=== PATIENT | male | born 1985 | race Caucasian/White ===

== ENCOUNTER 2024-01-28 11:28 | Emergency (ER) | payer MEDICAID ==
[~2024-01-28] VITALS: Ht 180.3 cm; Wt 78.0 kg
[2024-01-28 11:45] VITALS: O2SAT 100
[2024-01-28 12:16] LABS: CLARITY URINE CLEAR (CLEAR); COLOR URINE YELLOW (YELLOW); GLUCOSE URINE NEGATIVE (NEGATIVE); KETONES URINE TRACE (NEGATIVE); LEUKOCYTE ESTERASE URINE NEGATIVE (NEGATIVE); NITRITE URINE NEGATIVE (NEGATIVE); OCCULT BLOOD URINE NEGATIVE (NEGATIVE); PH URINE 6.5 (4.5-8.0); PROTEIN URINE 1+ (NEGATIVE); SPECIFIC GRAVITY URINE 1.026 (1.005-1.030)
[2024-01-28 12:22] LABS: BASOPHILS % 0.2 % (0.0-2.0); HEMATOCRIT. 30.3 % (42.0-52.0); HEMOGLOBIN. 10.2 g/dL (14.0-18.0); LYMPHOCYTES % 8.9 % (20.0-50.0); MEAN CORPUSCULAR HEMOGLOBIN 31.3 pg (28.0-32.0); MEAN CORPUSCULAR HGB CONC 33.7 g/dL (31.0-37.0); MEAN CORPUSCULAR VOLUME 92.8 fL (80.0-94.0); MEAN PLATELET VOLUME 7.4 fl (7.4-10.4); MONOCYTES % 1.8 % (2.0-8.0); NEUTROPHILS % 89.1 % (40.0-76.0); PLATELET 251 x1000/uL (130-400); RED BLOOD CELL COUNT 3.26 mill/uL (4.7-6.1); RED CELL DISTRIBUTION WIDTH 13.7 % (11.6-14.6)
[2024-01-28 12:29] LABS: CHLORIDE 106 mEq/L (98-107); POTASSIUM 4.5 mEq/L (3.5-5.1); SODIUM 137 mEq/L (136-145)
[2024-01-28 12:30] LABS: CALCIUM 9.2 mg/dL (8.7-10.4); CARBON DIOXIDE 26 mEq/L (21-32)
[2024-01-28 12:35] LABS: CREATININE 0.7 mg/dL (0.6-1.3); GLUCOSE 124 mg/dL (70-105); UREA NITROGEN BLOOD 13 mg/dL (9-23)
[2024-01-28 12:37] LABS: ALANINE AMINOTRANSFERASE 17 IU/L (10-49); ALBUMIN 4.2 g/dL (3.2-4.8); ASPARTATE AMINOTRANSFERASE 31 IU/L (<34); BILIRUBIN DIRECT 0.2 mg/dL (<=3.0); BILIRUBIN TOTAL 0.6 mg/dL (0.1-1.0)
[2024-01-28 12:51] LABS: MUCUS URINE 2+ /lpf (NONE/TRACE); SQUAMOUS EPITHELIAL CELL URINE 2+ /lpf (RARE/1+)
[2024-01-28 12:52] LABS: BACTERIA URINE NONE SEEN; RBC URINE NONE SEEN /hpf (0-2); WBC URINE 0-2 /hpf (0-2)
[2024-01-28] MEDS: FAMOTIDINE 20MG/2ML VIAL IV ONE (12:56)
[2024-01-28] MEDS: ONDANSETRON HCL 4MG/2ML INJ IV STA (12:56)
[2024-01-28] MEDS: SODIUM CHLORIDE 0.9% 1,000 ML IV ONE (13:02)
[2024-01-28] MEDS: HYDROCODONE/ACETAMINOPHEN 5/325MG TABLET PO STA (13:20)
[2024-01-28] MEDS: ONDANSETRON HCL 4MG/2ML INJ IV ONE (14:20)
[2024-01-28] MEDS: MORPHINE SULFATE 4 MG/ML INJ (FOR IV/IM USE) IV STA (15:14)
[2024-01-28] MEDS ORDERED: IOHEXOL-300 100 ML BOTTLE ONE (16:45)
[2024-01-28 16:54] VITALS: BP 118/60; PULSE 70; RESP 16; TEMP 36.78072; O2SAT 100
[2024-01-29 10:07] LABS: *AMPHETAMINES SCREEN URINE NEGATIVE (NEGATIVE)
[2024-01-29 10:08] LABS: *BARBITURATES SCREEN URINE NEGATIVE (NEGATIVE); *BENZODIAZEPINES SCREEN URINE NEGATIVE (NEGATIVE); *COCAINE SCREEN URINE NEGATIVE (NEGATIVE); CANNABINOID URINE SCREEN PRESUMPTIVE POSITIVE (NEGATIVE); ECSTASY MDMA SCREEN URINE NEGATIVE (NEGATIVE); METHADONE URINE SCREEN NEGATIVE (NEGATIVE); OPIATES URINE SCREEN PRESUMPTIVE POSITIVE (NEGATIVE); PHENCYCLIDINE URINE SCREEN NEGATIVE (NEGATIVE)
== END 2024-01-28 17:10 | disposition home or self-care (01) ==
LOC: ER 11:28
DX: K56.7 Ileus, unspecified (principal); S22.31XA Fracture of one rib, right side, initial encounter for closed fracture; X58.XXXA Exposure to other specified factors, initial encounter; Y93.89 Activity, other specified; Y92.89 Other specified places as the place of occurrence of the external cause; Y99.8 Other external cause status
CPT/HCPCS: 80076; 80305; 80048; 81003; 83690; 85025; 36415; 74177; 96374; 96375; 99285; Q9967; J3490; J2405; J2270; J7030; Z7610 ×2

== ENCOUNTER 2024-04-25 18:36 | Emergency (ER) | payer MEDICAID, OTHER ==
[~2024-04-25] VITALS: Ht 180.3 cm; Wt 82.0 kg
[2024-04-25 18:52] VITALS: BP 142/74; PULSE 102; RESP 16; TEMP 99.4; O2SAT 96
[2024-04-25 19:36] LABS: BASOPHILS % 0.3 % (0.0-2.0); EOSINOPHILS % 0.1 % (0.0-5.0); HEMATOCRIT. 28.4 % (42.0-52.0); HEMOGLOBIN. 9.8 g/dL (14.0-18.0); LYMPHOCYTES % 9.1 % (20.0-50.0); MEAN CORPUSCULAR HEMOGLOBIN 31.9 pg (28.0-32.0); MEAN CORPUSCULAR HGB CONC 34.5 g/dL (31.0-37.0); MEAN CORPUSCULAR VOLUME 92.6 fL (80.0-94.0); MEAN PLATELET VOLUME 7.4 fl (7.4-10.4); MONOCYTES % 1.7 % (2.0-8.0); NEUTROPHILS % 88.8 % (40.0-76.0); PLATELET 325 x1000/uL (130-400); RED BLOOD CELL COUNT 3.07 mill/uL (4.7-6.1); WHITE BLOOD COUNT 7.8 x1000/uL (4.5-11.0)
[2024-04-25 19:41] LABS: CHLORIDE 107 mEq/L (98-107); POTASSIUM 3.6 mEq/L (3.5-5.1); SODIUM 140 mEq/L (136-145)
[2024-04-25 19:42] LABS: CALCIUM 9.5 mg/dL (8.7-10.4); CARBON DIOXIDE 24 mEq/L (21-32)
[2024-04-25 19:47] LABS: CREATININE 0.8 mg/dL (0.6-1.3); GLUCOSE 147 mg/dL (70-105); UREA NITROGEN BLOOD 25 mg/dL (9-23)
[2024-04-25 19:49] LABS: ALANINE AMINOTRANSFERASE 14 IU/L (10-49); ALBUMIN 4.2 g/dL (3.2-4.8); ASPARTATE AMINOTRANSFERASE 26 IU/L (<34); BILIRUBIN DIRECT 0.2 mg/dL (<=3.0); BILIRUBIN TOTAL 0.7 mg/dL (0.1-1.0); PROTEIN TOTAL 7.6 g/dL (6.0-8.3)
[2024-04-25] MEDS ORDERED: MAGNESIUM/ALUMINUM HYDROXIDE/SIMETHICONE 30ML UDC PO ONE (21:45)
[2024-04-25] MEDS ORDERED: ONDANSETRON 4MG ODT PO ONE (21:45)
[2024-04-25] MEDS ORDERED: KETOROLAC 30MG/ML VIAL IM ONE (21:45)
[2024-04-25] MEDS ORDERED: FAMOTIDINE 20MG TABLET PO ONE (21:45)
[2024-04-25 21:59] LABS: TROPONIN I HIGH SENSITIVITY < 4 ng/L (3.0-53)
== END 2024-04-25 23:00 | disposition left against medical advice (07) ==
LOC: ER 18:36
DX: T23.002A Burn of unspecified degree of left hand, unspecified site, initial encounter (principal); R10.13 Epigastric pain; Z90.49 Acquired absence of other specified parts of digestive tract; X08.8XXA Exposure to other specified smoke, fire and flames, initial encounter; Y93.89 Activity, other specified; Y92.89 Other specified places as the place of occurrence of the external cause; Y99.8 Other external cause status
CPT/HCPCS: 36415; 80048; 80076; 84484; 85025; 99283